=== PATIENT | female | born 1990 | race Caucasian/White ===

== ENCOUNTER 2016-06-22 18:55 | Emergency (ER) | payer MEDICAID ==
[~2016-06-22 18:55] MED LIST: MOTRIN-DPS800 MG PO; NIPPLECREAM TP; NORCO 5-325 TA1 EACH PO; PRENATAL VIT1 TAB PO; TYLENOL #3 DPS1 TAB PO
--- NOTE | 2016-06-23 05:48 | ER ---
ADMIT: 06/22/2016 RM/LOC: ER [facility] MR#: [id number] [address] [id number] JOHANA LUNA [address] [place] [address] Emergency Room Report SEX: F AGE: 25 : 1990 DATE: 06/22/2016 The patient is a 25-year-old female complaining of the worse headache of her life that began at left posterior occiput associated with spots. Denies any nausea, vomiting, or focal deficit. Exam remarkable for nontoxic, afebrile female with normal neuro exam. Negative for meningismus. CT head negative. The patient given a liter of fluid, Zofran, Toradol, magnesium with relief. HCG negative. Follow up with Dr. Parker as needed. Misha Brown MD/ ludmila JOB #: [id number] CC: Misha Brown MD, Attending Physician Maury Parker MD, Family Physician Maury Parker MD
== END 2016-06-22 21:37 | disposition home or self-care (01) ==
LOC: ER 18:55
DX: G44.209 Tension-type headache, unspecified, not intractable (principal); Z87.442 Personal history of urinary calculi; Z79.899 Other long term (current) drug therapy